=== PATIENT | male | born 1940 | race Caucasian/White ===

== ENCOUNTER 2017-09-02 16:51 | Outpatient (CLI) | END 2017-09-02 16:52 | disposition home or self-care (01) | LOC: FCC-LAB 16:51 | PROVIDERS: ATTEND Family Medicine | DX: E11.9 Type 2 diabetes mellitus without complications (principal); E78.2 Mixed hyperlipidemia; I10 Essential (primary) hypertension | CPT/HCPCS: 36415; 80053; 80061; 83037 ==

== ENCOUNTER 2018-01-03 14:06 | Outpatient (CLI) | END 2018-01-03 14:07 | disposition home or self-care (01) | LOC: FCC-LAB 14:06 | PROVIDERS: ATTEND Family Medicine | DX: E11.9 Type 2 diabetes mellitus without complications (principal); E87.5 Hyperkalemia | CPT/HCPCS: 36415; 80053; 83037 ==

== ENCOUNTER 2018-07-21 11:12 | Outpatient (CLI) | payer OTHER | END 2018-07-21 11:13 | disposition home or self-care (01) | LOC: RHC-LAB 11:12 → FCC-LAB 11:13 | PROVIDERS: ATTEND Family Medicine | DX: E11.9 Type 2 diabetes mellitus without complications (principal); E78.2 Mixed hyperlipidemia; I10 Essential (primary) hypertension; N40.0 Benign prostatic hyperplasia without lower urinary tract symptoms; Z12.5 Encounter for screening for malignant neoplasm of prostate | CPT/HCPCS: 36415; 80053; 80061; 82043; 83037; 85007; 85025 ==